=== PATIENT | female | born 1980 | race Caucasian/White ===

== ENCOUNTER 2020-07-03 08:00 | Outpatient (CLI) | payer MEDICAID, OTHER ==
[2020-07-03 18:41] LABS: BILIRUBIN,URINE NEGATIVE (NEGATIVE); GLUCOSE, URINE (UA) NEGATIVE (NEGATIVE); KETONES,URINE (UA) NEGATIVE (NEGATIVE); LEUKOCYTE ESTERASE, URINE NEGATIVE (NEGATIVE); NITRITE,URINE NEGATIVE (NEGATIVE); OCCULT BLOOD,URINE MODERATE (NEGATIVE); PROTEIN,URINE NEGATIVE (NEGATIVE); UROBILINOGEN,URINE 0.2 (NORMAL) E.U./dL (NORMAL)
[2020-07-03 19:01] LABS: AMORPHOUS SEDIMENT,UR Marked /LPF; BACTERIA,URINE Rare /HPF (None Seen); CLARITY,URINE CLOUDY (CLEAR); RBC,URINE 0-5 /HPF (0-5); SQUAMOUS EPITHELIAL CELL,UR RARE Squamous (<= Few); WBC,URINE 0-3 /HPF (0-5)
== END 2020-07-03 23:59 ==
LOC: LAB.R 08:00
PROVIDERS: ATTEND Emergency Medicine
DX: R10.31 Right lower quadrant pain (principal)
CPT/HCPCS: 81001; 87086

== ENCOUNTER 2020-12-04 17:00 | Day surgery (SDC) | payer MEDICAID ==
[2020-12-04 17:43] LABS: BASOPHILS % (AUTO) 0.3 %; EOSINOPHILS # (AUTO) 0.1 10^3/uL (0.0-0.7); EOSINOPHILS % (AUTO) 1.3 %; HCT - HEMATOCRIT 36.3 % (37.0-47.0); HGB - HEMOGLOBIN 12.6 g/dL (12.0-16.0); LYMPHOCYTES # (AUTO) 1.9 10^3/uL (1.5-3.5); LYMPHOCYTES % (AUTO) 17.5 %; MEAN CORPUSCULAR HEMOGLOBIN 29.7 pg (27.0-31.0); MEAN CORPUSCULAR HGB CONC 34.7 g/dL (32.0-36.0); MEAN CORPUSCULAR VOLUME 85.6 fL (81.0-99.0); MEAN PLATELET VOLUME 10.6 fL (7.9-10.8); MONOCYTES # (AUTO) 0.5 10^3/uL (0.0-1.0); MONOCYTES % (AUTO) 4.8 %; NEUTROPHILS # (AUTO) 8.4 10^3/uL (1.5-6.6); NEUTROPHILS % (AUTO) 75.6 %; PLT - PLATELET COUNT 235 10^3/uL (130-450); RED BLOOD COUNT 4.24 10^6/uL (4.20-5.40); RED CELL DISTRIBUTION WIDTH 11.7 % (12.0-15.0); WHITE BLOOD COUNT 11.1 x10^3/uL (4.8-10.8)
[2020-12-04] MEDS ORDERED: HYDROmorphone 1 MG/ML CARPUJECT IVP STA (17:44)
[2020-12-04] MEDS ORDERED: SODIUM CHLORIDE 0.9% 1,000 ML IV STA (17:44)
[2020-12-04] MEDS ORDERED: ONDANSETRON 4 MG/2 ML VIAL IVP STA (17:44)
[2020-12-04 17:52] LABS: ALBUMIN 4.5 g/dL (3.2-5.5); ALBUMIN/GLOBULIN RATIO 1.7 (1.0-2.2); BILIRUBIN,TOTAL 1.3 mg/dL (0.2-1.0); CALCIUM 9.2 mg/dL (8.5-10.3); CREATININE 0.7 mg/dL (0.4-1.0); TOTAL PROTEIN 7.2 g/dL (6.7-8.2)
[2020-12-04 17:56] LABS: BILIRUBIN,URINE NEGATIVE (NEGATIVE); GLUCOSE, URINE (UA) NEGATIVE (NEGATIVE); KETONES,URINE (UA) NEGATIVE (NEGATIVE); LEUKOCYTE ESTERASE, URINE NEGATIVE (NEGATIVE); NITRITE,URINE NEGATIVE (NEGATIVE); OCCULT BLOOD,URINE MODERATE (NEGATIVE); PH,URINE 6.5 PH (5.0-7.5); PROTEIN,URINE NEGATIVE (NEGATIVE); UROBILINOGEN,URINE 0.2 (NORMAL) E.U./dL (NORMAL)
[2020-12-04 18:00] LABS: CLARITY,URINE CLEAR (CLEAR); HCG UR QUAL NEGATIVE
[2020-12-04 18:05] LABS: BACTERIA,URINE Rare /HPF (None Seen); SQUAMOUS EPITHELIAL CELL,UR RARE Squamous (<= Few); WBC,URINE 0-3 /HPF (0-5)
[2020-12-04] MEDS ORDERED: IOPAMIDOL-300 100 ML VIAL ONE (18:19)
[2020-12-04] MEDS ORDERED: IOPAMIDOL-300 100 ML VIAL IVP ONE (18:38)
[2020-12-04] MEDS ORDERED: PIPERACILLIN/TAZOBACTAM 3.375 GM in SODIUM CHLORIDE 0.9% MINIBAG 100 ML IV STA (19:08)
--- NOTE | 2020-12-04 19:10 | CT Report ---
PROCEDURE: Abdomen/Pelvis W INDICATIONS: RLQ abd pain that radiates to back; ?appy vs stone CONTRAST: IV CONTRAST: Isovue 300 ml: 100 PO CONTRAST: *NO PO CONTRAST TECHNIQUE: After the administration of IV and oral contrast, 5 mm thick sections acquired from the diaphragms to the symphysis. 5 mm thick coronal and sagittal reformats were acquired. For radiation dose reducti on, the following was used: automated exposure control, adjustment of mA and/or kV according to jay ent size. COMPARISON: None. FINDINGS: ABDOMEN: Lung bases: Normal Heart:Normal in size. No pericardial effusion. Liver: Normal. Gallbladder: Normal. Bile ducts: Normal. Pancreas: Normal. Spleen: Normal. Adrenals: Normal. Kidneys and ureters: Normal. Stomach and duodenum: Normal. Bowel: Appendix is dilated measuring 9 mm. There is mild periappendiceal fat stranding. No definite a ppendicoliths are seen. No abscess. Other: No free fluid or air. Abdominal nodes: Normal. Aorta: Normal in size. IVC: Normal. Ventral wall: Normal. PELVIS: Bladder: Normal. Pelvic nodes: Normal. Inguinal: No hernia. Bones: No vertebral body compression fracture. No suspicious bone lesion. IMPRESSION: Acute appendicitis. No abscess. No appendicoliths identified. Findings (including all critical results) and recommendations were personally telephoned and discusse d with CASSI Suh in the emergency department on 12-04-20 19:06 Reviewed by: Ramez Meeks MD on 12/04/2020 7:08 PM PDT Approved by: Ramez Meeks MD on 12/04/2020 7:08 PM PDT Station ID: [id number]
--- NOTE | 2020-12-04 19:12 | ED Physician Documentation ---
History of Present Illness - Stated complaint Stated Complaint: L RT SIDE ABD PX/N/V - Chief complaint Chief Complaint: Abd Pain - Additonal information Additional information: 40-year-old female presents emergency department for evaluation of acute onset right lower quadrant abdominal pain that began this morning and somewhat insidiously but is begun to get progressively worse. She does have some associated nausea and vomiting. Feels a pressure in her abdomen when she urinates but no ariella dysuria urgency or frequency. She still retains her gallbladder and her appendix. Review of Systems Constitutional: denies: Fever, Chills Ears: reports: Reviewed and negative Nose: reports: Reviewed and negative Throat: reports: Reviewed and negative Cardiac: reports: Reviewed and negative Respiratory: reports: Reviewed and negative GI: reports: Abdominal Pain, Nausea, Vomiting : reports: Reviewed and negative Skin: reports: Reviewed and negative PD PAST MEDICAL HISTORY - Past Medical History Past Medical History: No - Past Surgical History Past Surgical History: Yes HEENT: Other - Present Medications Home Medications: Ambulatory Orders Medication Instructions Recorded Confirmed Albuterol Sulfate [Proair 90 mcg IH DAILY PRN 12/04/20 12/04/20 Respiclick] - Allergies Allergies/Adverse Reactions: Allergies Allergy/AdvReac Type Severity Reaction Status Date / Time Sulfa (Sulfonamide Allergy Rash Verified 12/04/20 17:07 Antibiotics) - Social History Does the pt smoke?: No Smoking Status: Never smoker Does the pt drink ETOH?: No Does the pt have substance abuse?: No PD ED PE NORMAL - General General: Alert and oriented X 3, No acute distress - Neck Neck: Supple, no meningeal sign - Cardiac Cardiac: RRR, No murmur - Respiratory Respiratory: Clear bilaterally - Abdomen Abdomen: Normal bowel sounds, Soft. No: Non tender (Rebound tenderness right lower quadrant. Equivocal McBurney's) - Back Back: No CVA TTP, No spinal TTP Results - Vitals Vitals: Vital Signs - 24 hr 12/04/20 12/04/20 17:04 18:03 Temperature 37.2 C Heart Rate 99 85 Respiratory 16 14 Rate Blood Pressure 102/57 L 106/74 O2 Saturation 100 100 Oxygen O2 Source Room air - Labs Labs: Laboratory Tests 12/04/20 12/04/20 12/04/20 17:20 17:20 17:45 WBC 11.1 H RBC 4.24 Hgb 12.6 Hct 36.3 L MCV 85.6 MCH 29.7 MCHC 34.7 RDW 11.7 L Plt Count 235 MPV 10.6 Neut # (Auto) 8.4 H Lymph # (Auto) 1.9 [place] # (Auto) 0.5 Eos # (Auto) 0.1 Baso # (Auto) 0.0 Absolute Nucleated RBC 0.00 Nucleated RBC % 0.0 Sodium 137 Potassium 4.0 Chloride 101 Carbon Dioxide 26 Anion Gap 10.0 BUN 10 Creatinine 0.7 Estimated GFR (MDRD) 93 Glucose 105 H Calcium 9.2 Total Bilirubin 1.3 H AST 28 ALT 19 Alkaline Phosphatase 73 Total Protein 7.2 Albumin 4.5 Globulin 2.7 Albumin/Globulin Ratio 1.7 Lipase 21 L Urine Color YELLOW Urine Clarity CLEAR Urine pH 6.5 Ur Specific [place] 1.020 Urine Protein NEGATIVE Urine Glucose (UA) NEGATIVE Urine Ketones NEGATIVE Urine Occult Blood MODERATE H Urine Nitrite NEGATIVE Urine Bilirubin NEGATIVE Urine Urobilinogen 0.2 (NORMAL) Ur Leukocyte Esterase NEGATIVE Urine RBC 6-10 H Urine WBC 0-3 Ur Squamous Epith Cells RARE Squamous Urine Bacteria Rare Ur Microscopic Review INDICATED Urine Culture Comments NOT INDICATED Urine HCG, Qual NEGATIVE - Rads (name of study) CT abd Radiology: Final report received (Acute appendicitis. No abscess. No appendicoliths identified.) PD MEDICAL DECISION MAKING - ED course Complexity details: reviewed results, d/w patient ED course: 40-year-old female presents emergency department for evaluation of acute onset right lower quadrant abdominal pain with associated nausea and vomiting. Exam is consistent with acute appendicitis and CT scan confirms such. I have discussed case with Dr. Buckley on-call for surgery. Zosyn has been ordered. Further care to be dictated by the surgical team. Departure - Departure Disposition: ED Transfer to [facility] Clinical Impression: Acute appendicitis Qualifiers: Acute appendicitis type: with localized peritonitis Appendicitis gangrene presence: without gangrene Appendicitis perforation presence: without perforation Appendicitis abscess presence: without abscess Qualified Code(s): K35.30 - Acute appendicitis with localized peritonitis, without perforation or gangrene
[2020-12-04] MEDS ORDERED: BUPIVACAINE 0.25% PF 30 ML VIAL SUBQ ONE ×2 (19:47)
[2020-12-04] MEDS ORDERED: ROCURONIUM 50 MG/5 ML VIAL ONE (20:01)
[2020-12-04] MEDS ORDERED: PROPOFOL 200 MG/20 ML VIAL IVP ONE (20:01)
[2020-12-04] MEDS ORDERED: fentaNYL 100 MCG/2 ML VIAL ONE (20:01)
[2020-12-04] MEDS ORDERED: MIDAZOLAM 2 MG/2 ML VIAL ONE (20:01)
[2020-12-04] MEDS ORDERED: LIDOCAINE-MPF 2% 5 ML VIAL ONE (20:01)
[2020-12-04] MEDS ORDERED: HYDROmorphone 0.5 MG/0.5 ML SYRINGE IVP PRN (20:06)
[2020-12-04] MEDS ORDERED: fentaNYL 100 MCG/2 ML VIAL IVP PRN (20:06)
[2020-12-04] MEDS ORDERED: ATROPINE ABBOJECT 1 MG/10 ML SYRINGE IVP PRN (20:06)
[2020-12-04] MEDS ORDERED: ONDANSETRON 4 MG/2 ML VIAL IVP PRN ×2 (20:06→21:56)
[2020-12-04] MEDS ORDERED: MORPHINE 2 MG/ML CARPUJECT IVP PRN (20:06)
[2020-12-04] MEDS ORDERED: NALOXONE 0.4 MG/ML VIAL IVP PRN (20:06)
--- NOTE | 2020-12-04 20:07 | ANESTHESIA ---
Pre-Anesthesia VS, & Labs - Diagnosis Acute appendicitis - Procedure Lap Appy Vital Signs: Temp Pulse Resp BP Pulse Ox 37.1 C 97 16 112/92 H 99 12/04/20 19:45 12/04/20 19:45 12/04/20 19:45 12/04/20 19:45 12/04/20 19:45 Height: 5 ft Weight (kg): 63.503 kg Body Mass Index: 27.3 BMI Classification: Overweight - NPO >8 hours Last Fluid Intake: H2O at 1600 - Is Patient ?: No - Lab Results Current Lab Results: Laboratory Tests 12/04/20 17:20: Sodium 137, Potassium 4.0, Chloride 101, Carbon Dioxide 26, Anion Gap 10.0, BUN 10, Creatinine 0.7, Estimated GFR (MDRD) 93, Glucose 105 H, Calcium 9.2, Total Bilirubin 1.3 H, AST 28, ALT 19, Alkaline Phosphatase 73, Total Protein 7.2, Albumin 4.5, Globulin 2.7, Albumin/Globulin Ratio 1.7, Lipase 21 L 12/04/20 17:20: WBC 11.1 H, RBC 4.24, Hgb 12.6, Hct 36.3 L, MCV 85.6, MCH 29.7, MCHC 34.7, RDW 11.7 L, Plt Count 235, MPV 10.6, Neut # (Auto) 8.4 H, Lymph # ( Auto) 1.9, [place] # (Auto) 0.5, Eos # (Auto) 0.1, Baso # (Auto) 0.0, Absolute Nucleated RBC 0.00, Nucleated RBC % 0.0 Lab results reviewed: Yes Fish Bones: 12/04/20 17:20 12/04/20 17:20 Home Medications and Allergies Home Medications: Ambulatory Orders Albuterol Sulfate [Proair Respiclick] 90 mcg IH DAILY PRN 12/04/20 Albuterol Sulfate [Proair Respiclick] 90 mcg IH DAILY PRN 12/04/20 Allergies/Adverse Reactions: Allergies Allergy/AdvReac Type Severity Reaction Status Date / Time Sulfa (Sulfonamide Allergy Rash Verified 12/04/20 17:07 Antibiotics) Anes History & Medical History - Anesthetic History Family history of Anesthesia Complications: Denies Family history of Malignant Hyperthermia: Denies - Medical History Cardiovascular: reports: None Pulmonary: reports: Asthma (Poorly controlled. Uses Albuterol inhalor daily) Gastrointestinal: reports: None Urinary: reports: None Neuro: reports: None Musculoskeletal: reports: None Endocrine/Autoimmune: reports: None Blood Disorders: reports: None Skin: reports: None Smoking Status: Never smoker Psychosocial: reports: No issues indicated History of Cancer?: No - Surgical History Eyes Ears Nose Throat (EENT): reports: Other (oral surgery) Exam General: Alert, Oriented x3, Cooperative, No acute distress Dental: WNL Mouth Openin Fingerbreadth Neck Mobility: Normal Mallampati classification: II Thyromental Distance: 4-6 cm Respiratory: Lungs clear, Normal breath sounds, No respiratory distress, No accessory muscle use Cardiovascular: Regular rate, Normal S1, Normal S2, No murmurs Mental/Cognitive Status: Alert/Oriented X3, Normal for patient Plan Anesthesia Type: General Consent for Procedure(s) Verified and Reviewed: Yes Code Status: Attempt Resuscitation ASA classification: 2-Mild systemic disease Is this case an emergency?: Yes
--- NOTE | 2020-12-04 20:19 | SURGERY HX AND PHYSICAL(T) ---
Surgical History & Physical - Chief Complaint/HPI Chief Complaint: RLQ pain History of Present Illness: 40 yo female had a similar episode of RLQ pain a few months ago which resolved. The current episode started at 0630 today, associated with N/V, and has persisted through the day, localized to RLQ. She has anorexia and only drank water today. No previous abdominal surgery.She is not . CT abd/pelvis: INDICATIONS: RLQ abd pain that radiates to back; ?appy vs stone CONTRAST: IV CONTRAST: Isovue 300 ml: 100 PO CONTRAST: *NO PO CONTRAST TECHNIQUE: After the administration of IV and oral contrast, 5 mm thick sections acquired from the diaphragms to the symphysis. 5 mm thick coronal and sagittal reformats were acquired. For radiation dose reduction, the following was used: automated exposure control, adjustment of mA and/or kV according to patient size. COMPARISON: None. FINDINGS: ABDOMEN: Lung bases: Normal Heart:Normal in size. No pericardial effusion. Liver: Normal. Gallbladder: Normal. Bile ducts: Normal. Pancreas: Normal. Spleen: Normal. Adrenals: Normal. Kidneys and ureters: Normal. Stomach and duodenum: Normal. Bowel: Appendix is dilated measuring 9 mm. There is mild periappendiceal fat stranding. No definite appendicoliths are seen. No abscess. Other: No free fluid or air. Abdominal nodes: Normal. Aorta: Normal in size. IVC: Normal. Ventral wall: Normal. PELVIS: Bladder: Normal. Pelvic nodes: Normal. Inguinal: No hernia. Bones: No vertebral body compression fracture. No suspicious bone lesion. IMPRESSION: Acute appendicitis. No abscess. No appendicoliths identified. Findings (including all critical results) and recommendations were personally telephoned and discussed with CASSI Suh in the emergency department on 12-04-20 19:06 Reviewed by: Ramez Hargrove MD on 12/04/2020 7:08 PM PDT Approved by: Ramez Hargrove MD on 12/04/2020 7:08 PM PDT - PMH/PSH/Social Hx Neurological History: None Cardiovascular: None Respiratory: Asthma (Poorly controlled. Uses Albuterol inhalor daily) Skin: None Endocrine/Autoimmune: None Gastrointestinal: None Urinary: None Musculoskeletal: None Blood Disorders: None Eyes Ears Nose Throat (EENT): Other (oral surgery) Smoking Status: Never smoker Does the pt drink ETOH?: No Does the pt have substance abuse?: No - Home Meds and Allergies Home Medications: Albuterol Sulfate [Proair Respiclick] 90 mcg IH DAILY PRN 12/04/20 Allergies/Adverse Reactions: Allergies Allergy/AdvReac Type Severity Reaction Status Date / Time Sulfa (Sulfonamide Allergy Rash Verified 12/04/20 17:07 Antibiotics) - Review of Systems Gastrointestinal: Nausea, Vomiting, Abdominal pain - Vital Signs Heart Rate: 97 Blood Pressure: 112/92 Temperature: 37.1 C Respiratory Rate: 16 O2 Saturation: 99 Weight (kg): 63.503 kg Height: 1.52 m - Physical Exam General Appearance: positive: No acute distress Eyes Bilatera: positive: Normal inspection ENT: positive: ENT inspection nml Neck: positive: Nml inspection Respiratory: positive: No respiratory distress Cardiovascular: positive: Regular rate & rhythm Abdomen: positive: No distention, Tenderness (RLQ, positive localized rebound, and positive Rovsing's sign) Extremities: positive: Nml appearance - Patient Review Patient Review: Problems were reviewed with the patient during this visit. Medications were reviewed with the patient during this visit. Allergies were reviewed this patient during this visit. Pertinent Tests Reviewed: All pertitent test for this patient were reviewed. - Assessment & Plan Assessment and Plan: Acute appendicitis by physical exam findings and CT scan. Plan: Lap appendectomy Preop Pete
[2020-12-04] MEDS ORDERED: BUPIVACAINE 0.25% PF 30 ML VIAL ONE (20:22)
[2020-12-04] MEDS ORDERED: DEXAMETHASONE 4 MG/ML VIAL ONE (20:57)
[2020-12-04] MEDS ORDERED: KETOROLAC 30 MG/ML VIAL ONE (20:57)
[2020-12-04] MEDS ORDERED: ONDANSETRON 4 MG/2 ML VIAL ONE (20:57)
[2020-12-04] MEDS ORDERED: LACTATED RINGERS 1,000 ML IV SCH (21:00)
[2020-12-04] MEDS ORDERED: SUGAMMADEX 200 MG/2 ML VIAL IVP ONE (21:28)
--- NOTE | 2020-12-04 21:52 | OPERATIVE REPORT ---
Operative Report - General Planned Procedure: Lap appendectomy Pre-Op Diagnosis: Acute Appendicitis Procedure Performed: Lap Appendectomy Post Op Diagnosis: Acute suppurative appendicitis - Procedure Note Primary Surgeon: Farhad Buckley Secondary Surgeon: none Anesthesia Provider: Queenie Vick CRNA Anesthesia Technique: General ET tube Estimated Blood Loss (mL): 10 Indications: 40 yo female with 12 hours of RLQ pain and acute appendicitis by clinical exam and CT imaging Findings: Acute, suppurative appendicitis, wrapped in omentum. Complications: none - Other Other Information/Narrative: Patient was taken to the operating room where general esthesia was induced, patient was intubated, and the lower abdomen was prepped with ChloraPrep and sterilely draped in the usual fashion. After a timeout, incision was made at the umbilicus with a scalpel and Metzenbaum scissors dissection down to the peritoneum. 5 mm trocar was placed atraumatically and CO2 was insufflated. A 5 mm 0 degree laparoscope was inserted and used to visualize the anterior abdominal wall as a 12 mm trocar was placed to the left of midline in the suprapubic location and a 5 mm trocar was placed in the right lower quadrant. Operative findings as above. The appendix was mobilized and the mesoappendix was divided with an Endo JANY vascular stapler x 1. The base of the appendix was then stapled across with an Endo JANY stapler and the appendix was placed into an Endopouch. There was some oozing from the mesoappendix staple line which was observed and stopped. The pelvis and right lower quadrant were irrigated well with saline and aspirated dry. The appendix in the Endopouch was withdrawn through the 12 mm trocar site, CO2 was desufflated from the abdomen and all trocars were removed after ensuring good hemostasis. Fascia at the umbilical and left suprapubic trocar sites was closed with 0 Vicryl on a UR needle and skin incisions were closed with 5-0 Monocryl. Surgical glue was applied to the incisions. Patient was extubated and taken to recovery in stable condition.
[2020-12-04] MEDS ORDERED: oxyCODONE 5 MG TABLET PO PRN (21:56)
[2020-12-04] MEDS ORDERED: LACTATED RINGERS 1,000 ML IV ONE (21:57)
--- NOTE | 2020-12-04 23:40 | ANESTHESIA POST OP EVALUATION ---
Anesthesia Post Eval - Post Anesthesia Eval Vitals: Last Vital Signs Temp 36.3 C L 12/04/20 22:41 Pulse 82 12/04/20 22:41 Resp 18 12/04/20 22:41 BP 91/58 L 12/04/20 22:41 Pulse Ox 100 12/04/20 22:41 CV Function Including HR & BP: Stable Pain Control: Satisfactory Nausea & Vomiting: Negative Mental Status: Baseline Respiratory Status: Airway Patent Hydration Status: Satisfactory Anesthesia Complications: None
[2020-12-05] MEDS ORDERED: ACETAMINOPHEN 325 MG TABLET PO PRN (08:57)
[2020-12-05 11:32] LABS: HCT - HEMATOCRIT 32.8 % (37.0-47.0); HGB - HEMOGLOBIN 11.2 g/dL (12.0-16.0); MEAN CORPUSCULAR HEMOGLOBIN 29.5 pg (27.0-31.0); MEAN CORPUSCULAR HGB CONC 34.1 g/dL (32.0-36.0); MEAN CORPUSCULAR VOLUME 86.3 fL (81.0-99.0); RED BLOOD COUNT 3.8 10^6/uL (4.20-5.40); RED CELL DISTRIBUTION WIDTH 11.8 % (12.0-15.0); WHITE BLOOD COUNT 11.4 x10^3/uL (4.8-10.8)
--- NOTE | 2020-12-05 12:11 | PROVIDER PROGRESS NOTE ---
Subjective - General Procedure Date: 12/04/20 Post Op Days: 1 Procedure Performed: Lap appendectomy - Review of Systems Wound/Incisions: positive: Healing well General: positive: Other (Tired) Gastrointestinal: negative: Nausea, Vomiting, Abdominal pain Objective - Patient Data Vital Signs: Vital Signs x48h Temp Pulse Resp BP Pulse Ox 12/05/20 07:52 36.9 C 86 16 87/51 L 12/05/20 04:26 36.4 C L 65 16 91/58 L 97 Weight: Weight 12/03/20 12/04/20 12/05/20 23:59 23:59 23:59 Weight (kg) 63.503 kg Intake & Output: Intake and Output Totals x24h 12/03/20 12/04/20 12/05/20 23:59 23:59 23:59 Intake Total 1100.000 580 Balance 1100.000 580 - Lab Results Lab Results: 12/05/20 11:09 12/04/20 17:20 Other Lab Results: Lab Results x24hrs 12/05/20 12/04/20 12/04/20 Range/Units 11:09 17:45 17:20 WBC 11.4 H (4.8-10.8) x10^3/uL RBC 3.80 L (4.20-5.40) 10^6/uL Hgb 11.2 L (12.0-16.0) g/dL Hct 32.8 L (37.0-47.0) % MCV 86.3 (81.0-99.0) fL MCH 29.5 (27.0-31.0) pg MCHC 34.1 (32.0-36.0) g/dL RDW 11.8 L (12.0-15.0) % Plt Count 215 (130-450) 10^3/uL MPV 11.0 H (7.9-10.8) fL Neut # (Auto) (1.5-6.6) 10^3/uL Lymph # (Auto) (1.5-3.5) 10^3/uL [place] # (Auto) (0.0-1.0) 10^3/uL Eos # (Auto) (0.0-0.7) 10^3/uL Baso # (Auto) (0.0-0.1) 10^3/uL Absolute Nucleated RBC x10^3/uL Nucleated RBC % /100WBC Sodium 137 (135-145) mmol/L Potassium 4.0 (3.5-5.0) mmol/L Chloride 101 (101-111) mmol/L Carbon Dioxide 26 (21-32) mmol/L Anion Gap 10.0 (6-13) BUN 10 (6-20) mg/dL Creatinine 0.7 (0.4-1.0) mg/dL Estimated GFR (MDRD) 93 (>89) Glucose 105 H (70-100) mg/dL Calcium 9.2 (8.5-10.3) mg/dL Total Bilirubin 1.3 H (0.2-1.0) mg/dL AST 28 (10-42) IU/L ALT 19 (10-60) IU/L Alkaline Phosphatase 73 (42-121) IU/L Total Protein 7.2 (6.7-8.2) g/dL Albumin 4.5 (3.2-5.5) g/dL Globulin 2.7 (2.1-4.2) g/dL Albumin/Globulin Ratio 1.7 (1.0-2.2) Lipase 21 L (22-51) U/L Urine Color YELLOW Urine Clarity CLEAR (CLEAR) Urine pH 6.5 (5.0-7.5) PH Ur Specific [place] 1.020 (1.002-1.030) Urine Protein NEGATIVE (NEGATIVE) mg/dL Urine Glucose (UA) NEGATIVE (NEGATIVE) mg/dL Urine Ketones NEGATIVE (NEGATIVE) mg/dL Urine Occult Blood MODERATE H (NEGATIVE) Urine Nitrite NEGATIVE (NEGATIVE) Urine Bilirubin NEGATIVE (NEGATIVE) Urine Urobilinogen 0.2 (NORMAL) (NORMAL) E.U./dL Ur Leukocyte Esterase NEGATIVE (NEGATIVE) Urine RBC 6-10 H (0-5) /HPF Urine WBC 0-3 (0-5) /HPF Ur Squamous Epith Cells RARE Squamous (<= Few) Urine Bacteria Rare (None Seen) /HPF Ur Microscopic Review INDICATED Urine Culture Comments NOT INDICATED Urine HCG, Qual NEGATIVE 12/04/20 Range/Units 17:20 WBC 11.1 H (4.8-10.8) x10^3/uL RBC 4.24 (4.20-5.40) 10^6/uL Hgb 12.6 (12.0-16.0) g/dL Hct 36.3 L (37.0-47.0) % MCV 85.6 (81.0-99.0) fL MCH 29.7 (27.0-31.0) pg MCHC 34.7 (32.0-36.0) g/dL RDW 11.7 L (12.0-15.0) % Plt Count 235 (130-450) 10^3/uL MPV 10.6 (7.9-10.8) fL Neut # (Auto) 8.4 H (1.5-6.6) 10^3/uL Lymph # (Auto) 1.9 (1.5-3.5) 10^3/uL [place] # (Auto) 0.5 (0.0-1.0) 10^3/uL Eos # (Auto) 0.1 (0.0-0.7) 10^3/uL Baso # (Auto) 0.0 (0.0-0.1) 10^3/uL Absolute Nucleated RBC 0.00 x10^3/uL Nucleated RBC % 0.0 /100WBC Sodium (135-145) mmol/L Potassium (3.5-5.0) mmol/L Chloride (101-111) mmol/L Carbon Dioxide (21-32) mmol/L Anion Gap (6-13) BUN (6-20) mg/dL Creatinine (0.4-1.0) mg/dL Estimated GFR (MDRD) (>89) Glucose (70-100) mg/dL Calcium (8.5-10.3) mg/dL Total Bilirubin (0.2-1.0) mg/dL AST (10-42) IU/L ALT (10-60) IU/L Alkaline Phosphatase (42-121) IU/L Total Protein (6.7-8.2) g/dL Albumin (3.2-5.5) g/dL Globulin (2.1-4.2) g/dL Albumin/Globulin Ratio (1.0-2.2) Lipase (22-51) U/L Urine Color Urine Clarity (CLEAR) Urine pH (5.0-7.5) PH Ur Specific [place] (1.002-1.030) Urine Protein (NEGATIVE) mg/dL Urine Glucose (UA) (NEGATIVE) mg/dL Urine Ketones (NEGATIVE) mg/dL Urine Occult Blood (NEGATIVE) Urine Nitrite (NEGATIVE) Urine Bilirubin (NEGATIVE) Urine Urobilinogen (NORMAL) E.U./dL Ur Leukocyte Esterase (NEGATIVE) Urine RBC (0-5) /HPF Urine WBC (0-5) /HPF Ur Squamous Epith Cells (<= Few) Urine Bacteria (None Seen) /HPF Ur Microscopic Review Urine Culture Comments Urine HCG, Qual - Current Medications Current Medications: Current Medications Generic Name Dose Route Start Last Admin Trade Name Freq PRN Reason Stop Dose Admin Oxycodone HCl 5 mg 12/04/20 21:56 12/05/20 08:49 Oxycodone 5 Mg Tablet PO 5 mg Q4HR PRN Administration PAIN - Physical Exam Wound/Incisions: positive: Healing well Abdomen: positive: Non-tender, No distention. negative: Tenderness Impression/Plan - Problem List Problem List: s/p lap appy. Patient feels well and has ambulated in room. Hct 33. No bruising or abdominal tenderness. Advance diet, home later today. Vital Signs - 24 hr 12/04/20 12/04/20 12/04/20 17:04 18:03 19:45 Temperature 37.2 C 37.1 C Heart Rate 99 85 97 Respiratory 16 14 16 Rate Blood Pressure 102/57 L 106/74 112/92 H O2 Saturation 100 100 99 12/04/20 12/04/20 12/04/20 20:26 21:44 21:45 Temperature 37.1 C 36.5 C 36.5 C Heart Rate 97 81 78 Respiratory 16 12 12 Rate Blood Pressure 112/92 H 94/77 93/68 O2 Saturation 99 100 100 12/04/20 12/04/20 12/04/20 21:50 22:00 22:05 Temperature 36.5 C 36.4 C L 36.4 C L Heart Rate 78 76 74 Respiratory 12 12 12 Rate Blood Pressure 89/69 L 96/61 98/69 O2 Saturation 99 100 100 12/04/20 12/04/20 12/04/20 22:10 22:15 22:20 Temperature 36.4 C L 37.3 C 37.3 C Heart Rate 73 73 72 Respiratory 12 22 14 Rate Blood Pressure 90/73 93/63 90/65 O2 Saturation 100 100 100 12/04/20 12/04/20 12/04/20 22:25 22:41 23:45 Temperature 37.3 C 36.3 C L 36.9 C Heart Rate 89 82 71 Respiratory 21 18 16 Rate Blood Pressure 109/72 91/58 L 84/56 L O2 Saturation 97 100 99 12/05/20 12/05/20 12/05/20 00:00 00:52 02:21 Temperature Heart Rate 72 74 75 Respiratory 16 18 Rate Blood Pressure 90/59 L 100/65 84/54 L O2 Saturation 99 12/05/20 12/05/20 04:26 07:52 Temperature 36.4 C L 36.9 C Heart Rate 65 86 Respiratory 16 16 Rate Blood Pressure 91/58 L 87/51 L O2 Saturation 97
[2020-12-05 12:52] VITALS: BP 94/55
--- NOTE | 2020-12-05 13:51 | Discharge Plan ---
Discharge Plan Problem Reviewed?: Yes Disposition: Home, Self Care Condition: Good Prescriptions: oxyCODONE [Roxicodone] 5 mg PO Q4HR PRN #10 tablet PRN Reason: Pain Diet: Regular Activity Restrictions: Additional Comments (No heavy lifting for one week) Shower Restrictions: No (OK to shower tomorrow and wet incisions) Driving Restrictions: No (Do not drive if taking oxycodone) Weight Bearing: Full Weight Additional Instructions or Follow Up instructions: Follow up in [facility] in one week No Smoking: If you smoke, Please STOP! Call for help.
--- NOTE | 2020-12-05 13:56 | DISCHARGE SUMMARY ---
"Discharge Summary Admit Date: 12/04/20 Discharge Date: 12/05/20 Discharging Provider: Marcio Code Status: Attempt Resuscitation Condition at Discharge: Good Discharge Disposition: 01 Home, Self Care - DIAGNOSES Admission Diagnoses: Acute appendicitis Discharge Diagnoses with Status of Each Condition: Acute appendicitis, resolved - HPI History of Present Illness: 40 yo female with acute appendicitis. - CONSULTS | PROCEDURES Procedures: Lap appendectomy 12/04/2020 - HOSPITAL COURSE Hospital Course: Uncomplicated lap appendectomy. Post op course notable only for H/H on POD#1. Patient ambulatory, tolerating diet, no abdominal distention or tenderness, no drainage from incisions or bruising. - ALLERGIES Allergies/Adverse Reactions: Allergies Allergy/AdvReac Type Severity Reaction Status Date / Time Sulfa (Sulfonamide Allergy Rash Verified 12/04/20 17:07 Antibiotics) - MEDICATIONS Home Medications: Ambulatory Orders Medication Instructions Recorded Confirmed Albuterol Sulfate [Proair 90 mcg IH DAILY PRN 12/04/20 12/04/20 Respiclick] oxyCODONE [Roxicodone] 5 mg PO Q4HR PRN #10 tablet 12/05/20 - PHYSICAL EXAM AT DISCHARGE General Appearance: positive: No acute distress Eyes Bilateral: positive: Normal inspection Abdomen: positive: Non-tender, No distention - LABS Result Diagrams: 12/05/20 11:09 12/04/20 17:20 - TIME SPENT Time Spent in Discharge (Minutes): 20"
== END 2020-12-05 14:47 | disposition home or self-care (01) ==
LOC: ED 17:00 → SDS 19:30 → MS2 21:37 → SDS 12-05 14:47
PROVIDERS: ATTEND Surgery
PROC: 0DTJ4ZZ Resection of Appendix, Percutaneous Endoscopic Approach (ICD-10-PCS; principal; 2020-12-04 20:30)
DX: K35.30 Acute appendicitis with localized peritonitis, without perforation or gangrene (principal); J45.909 Unspecified asthma, uncomplicated
CPT/HCPCS: 36415; 44970; 74177; 80053; 81001; 81025; 83690; 85025; 85027; 96374; 96375; 99284; 99285; A9270; J1170; J7120; Q9967; 81003; 87086

== ENCOUNTER 2021-11-23 00:59 | Emergency (ER) | payer MEDICAID ==
[2021-11-23 01:19] VITALS: BP 116/81
--- NOTE | 2021-11-23 03:49 | ED Physician Documentation ---
<Beth Suh - Last Filed: 11/24/21 12:59> History of Present Illness - Stated complaint Stated Complaint: face swelling, broken tooth - Chief complaint Chief Complaint: Heent PD PAST MEDICAL HISTORY - Present Medications Home Medications: Ambulatory Orders Medication Instructions Recorded Confirmed Albuterol Sulfate [Proair 90 mcg IH DAILY PRN 12/04/20 12/04/20 Respiclick] oxyCODONE [Roxicodone] 5 mg PO Q4HR PRN #10 tablet 12/05/20 Amox/Clav 875/125 [Augmentin 1 tablet PO Q12H 7 Days #14 tablet 11/23/21 875/125 Tab] HYDROcod/ACETAM 5/325 [[place] 5/325] 1 - 2 tablet PO Q6H PRN #20 tablet 11/23/21 Clindamycin [Cleocin] 450 mg PO TID 7 Days #63 cap 11/24/21 - Allergies Allergies/Adverse Reactions: Allergies Allergy/AdvReac Type Severity Reaction Status Date / Time Sulfa (Sulfonamide Allergy Rash Verified 11/24/21 12:39 Antibiotics) Departure - Departure Disposition: Home, Self Care Clinical Impression: Dental infection Condition: Good Instructions: ED Abscess Dental Follow-Up: Wilmer Espinosa DDS [Provider Admit Priv/Credential] - Prescriptions: Amox/Clav 875/125 [Augmentin 875/125 Tab] 1 tablet PO Q12H 7 Days #14 tablet HYDROcod/ACETAM 5/325 [Rupert 5/325] 1 - 2 tablet PO Q6H PRN #20 tablet PRN Reason: Pain Comments: Prescriptions for pain medication (vicodin) and an antibiotic (augmentin) have been electronically submitted to [facility] pharmacy in [place]. Contact Dr. Espinosa' office to arrange for follow-up, ideally within 2-3 days. Discharge Date/Time: 11/23/21 04:13 <Tani Low - Last Filed: 11/27/21 21:20> History of Present Illness - History obtained from History obtained from: Patient - History of Present Illness Timing: How many days ago (1-2) Pain level now: 4 Improved by: no ameliorating factors Worsened by: no exacerbating factors - Additonal information Additional information: c/o left-sided facial swelling, predominantly mandibular/sub-mandibular, x 1-2 days. She suspects this is related to a broken tooth , left mandibular molar that has been broken (not recently). she has associated pain with the swelling. Denies fever. Review of Systems Constitutional: denies: Fever Throat: reports: Dental pain / toothache. denies: Sore throat PD PAST MEDICAL HISTORY - Past Medical History Past Medical History: Yes Cardiovascular: None Respiratory: Asthma Neuro: None Endocrine/Autoimmune: None GI: None : None Musculoskeletal: None Derm: None - Past Surgical History Past Surgical History: Yes HEENT: Other - Social History Does the pt smoke?: No Smoking Status: Never smoker Does the pt drink ETOH?: No Does the pt have substance abuse?: No - Immunizations Immunizations are current?: Yes PD ED PE NORMAL - Vitals Vital signs reviewed: Yes - General General: Alert and oriented X 3, No acute distress, Well developed/nourished - HEENT HEENT: Pharynx benign, Dentition benign (no intraoral swelling, erythema, fluctuance. mild tenderness to percussion of left mandibular third molar) PD ED PE EXPANDED - HEENT HEENT Visual: 1 - swelling (swelling without firmness. no erythema) Results - Vitals Vitals: Oxygen O2 Source Room air PD MEDICAL DECISION MAKING - ED course Complexity details: considered differential, d/w patient ED course: mild but grossly visible left submandibular swelling associated with what was initially pain localized to left mandibular third molar; suspect dental infection with localized spread, will rx augmentin and vicodin with careful return precautions discussed and follow up with dentistry
[2021-11-23] MEDS ORDERED: HYDROcod/ACETAM 5/325 MG TABLET PO STA (04:04)
[2021-11-23] MEDS ORDERED: AMOX/CLAV 875 MG/125 MG TABLET PO STA (04:04)
== END 2021-11-23 04:13 | disposition home or self-care (01) ==
LOC: ED 00:59
DX: K04.7 Periapical abscess without sinus (principal)
CPT/HCPCS: 99282; A9270

== ENCOUNTER 2021-11-24 12:36 | Emergency (ER) | payer MEDICAID ==
[2021-11-24] MEDS ORDERED: SODIUM CHLORIDE 0.9% 1,000 ML IV STA (12:55)
[2021-11-24] MEDS ORDERED: HYDROmorphone 1 MG/ML CARPUJECT IVP STA (12:55)
[2021-11-24] MEDS ORDERED: AMPICILLIN/SULBACTAM 3 GM in SODIUM CHLORIDE 0.9% MINIBAG 100 ML IV STA (12:56)
--- NOTE | 2021-11-24 13:08 | ED Physician Documentation ---
History of Present Illness - Stated complaint Stated Complaint: JAW SWELLING/PX - Chief complaint Chief Complaint: Heent - Additonal information Additional information: 41-year-old female returns the emergency department for evaluation of worsening left lower jaw swelling. Seen here at this emergency department in the crab meat processor of 23 November. At that time she was diagnosed with a broken tooth and started on Augmentin and pain control. Despite this she has had progressive swelling and erythema of her left lower jaw and now some trismus. Reporting increased difficulty swallowing. She had attempted to follow-up with dentist/OMFS but her surgeon was out of town. Thus she presents here to the emergency department. She is tolerating her oral secretions but certainly has trismus. low grade temp elevation at home of 100 degrees. Review of Systems Constitutional: denies: Fever, Chills Throat: reports: Dental pain / toothache, Other (+trismus) Cardiac: reports: Reviewed and negative Respiratory: reports: Reviewed and negative GI: reports: Reviewed and negative : reports: Reviewed and negative Skin: reports: Reviewed and negative PD PAST MEDICAL HISTORY - Past Medical History Cardiovascular: None Respiratory: Asthma Neuro: None Endocrine/Autoimmune: None GI: None : None Musculoskeletal: None Derm: None - Past Surgical History Past Surgical History: Yes HEENT: Other - Present Medications Home Medications: Ambulatory Orders Medication Instructions Recorded Confirmed Albuterol Sulfate [Proair 90 mcg IH DAILY PRN 12/04/20 12/04/20 Respiclick] oxyCODONE [Roxicodone] 5 mg PO Q4HR PRN #10 tablet 12/05/20 Amox/Clav 875/125 [Augmentin 1 tablet PO Q12H 7 Days #14 tablet 11/23/21 875/125 Tab] HYDROcod/ACETAM 5/325 [[place] 5/325] 1 - 2 tablet PO Q6H PRN #20 tablet 11/23/21 Clindamycin [Cleocin] 450 mg PO TID 7 Days #63 cap 11/24/21 - Allergies Allergies/Adverse Reactions: Allergies Allergy/AdvReac Type Severity Reaction Status Date / Time Sulfa (Sulfonamide Allergy Rash Verified 11/24/21 12:39 Antibiotics) - Social History Does the pt smoke?: No Smoking Status: Never smoker Does the pt drink ETOH?: No Does the pt have substance abuse?: No - Immunizations Immunizations are current?: Yes PD ED PE EXPANDED - General General: Alert, No acute distress, Well developed/nourished - HEENT HEENT: Other (+ trismus; unable to open mouth. Swelling and erythema left lower lateral jaw with swelling and erythema to the submandibular space and lateral neck. normal phonation) - Neck Neck: Supple w/out meningeal sx, Other (Painful to turn neck laterally). No: Adenopathy - Cardiac Cardiac: Regular Rate, Radial strong equal, Pedal strong equal, Cap refill < 2 s ec. No: Murmur Present - Respiratory Respiratory: Clear to ausultation jose maria. No: Distress, Labored - Extremities Extremities: Normal. No: Deformity, Tenderness Results - Vitals Vitals: Vital Signs - 24 hr 11/24/21 11/24/21 12:39 15:19 Temperature 36.5 C Heart Rate 77 73 Respiratory 16 18 Rate Blood Pressure 120/95 H 107/71 O2 Saturation 99 100 Oxygen O2 Source Room air - Labs Labs: Laboratory Tests 11/24/21 11/24/21 11/24/21 13:14 13:14 13:14 WBC 7.5 RBC 4.19 L Hgb 12.5 Hct 35.7 L MCV 85.2 MCH 29.8 MCHC 35.0 RDW 11.4 L Plt Count 247 MPV 10.2 Neut # (Auto) 4.6 Lymph # (Auto) 2.0 [place] # (Auto) 0.7 Eos # (Auto) 0.1 Baso # (Auto) 0.0 Absolute Nucleated RBC 0.00 Nucleated RBC % 0.0 Sodium 136 Potassium 4.5 Chloride 99 L Carbon Dioxide 29 Anion Gap 8.0 BUN 12 Creatinine 0.7 Estimated GFR (MDRD) 92 Glucose 112 H Calcium 9.1 Total Bilirubin 0.7 AST 26 ALT 19 Alkaline Phosphatase 78 Total Protein 7.3 Albumin 4.3 Globulin 3.0 Albumin/Globulin Ratio 1.4 Lipase 25 Serum HCG, Qual NEGATIVE - Rads (name of study) soft tissue neck Radiology: Final report received (Left-sided submandibular enhancing lymph node with surrounding subcutaneous edema may reflect adenitis with adjacent cellulitis. No evidence of organized abscess. Reactive appearing bilateral deep cervical adenopathy) PD MEDICAL DECISION MAKING - ED course Complexity details: considered differential, d/w patient, d/w family ED course: 41-year-old female presents emergency department for evaluation of worsening left lower jaw and neck swelling. Diagnosed with a fractured tooth on the crab meat processor of the and started on Augmentin. Despite taking the doses appropriately she has increased swelling. Presents with low-grade temperature elevation of 100 degrees. She does have some trismus. No difficulty swallowing phonating but is reporting increased pain with swallow. Given early concern for possible Mark's angina the patient was administered 3 g of Unasyn IV. We then proceeded with CT soft tissue imaging of the neck. There is some submandibular lymphadenopathy with surrounding edema likely reflecting cellulitis but no evidence of organized abscess. We did obtain a CBC and electrolytes that were without findings of leukocytosis or worrisome electrolyte derangement. I reevaluated the patient and after few hours here in the emergency department she was noted to have a reduced erythema and swelling. We then administered 20 g of Decadron. Patient will be discharged with a prescription for clindamycin. Advised to stop the Augmentin. I did attempt to get in contact with the patient's OMFS surgeon Dr. Flaherty but he is away and was unavailable for consult. However the patient and her partner have been in contact with the office and report that they will be seeing him in Sunday this upcoming week. The patient appears improved with reduced swelling and erythema and is therefore stable for discharge home. Discussed worrisome and emergent return precautions for concerns of worsening trismus, dysphonia inability to tolerate oral secretions high fevers or difficulty and labored breathing 1545: I did briefly speak on the phone with Dr. Wilmer Espinosa for local FS in [place]. We discussed the patient's clinical presentation, her labs and CT imaging. He is in agreement that the patient is likely stable for outpatient treatment. He would agree with the change of antibiotics to clindamycin and he is happy to try and follow the patient up in office is soon as possible. Departure - Departure Disposition: Home, Self Care Clinical Impression: Cellulitis of jaw, left, Dental infection Condition: Stable Record reviewed to determine appropriate education?: Yes Prescriptions: Clindamycin [Cleocin] 450 mg PO TID 7 Days #63 cap Comments: Hayley, you were seen today in the emergency department for increased swelling and redness of your left jaw. The CT scan that we did does show that you have a fair amount of enlarged lymph nodes as well as infection but nothing to suggest an abscess or fluid collection. You were given 20 mg of Decadron today in the ER which will help with swelling and pain. Please stop taking the Augmentin. Instead begin taking clindamycin 450 mg 3 times a day for the next week. This prescription has been sent to the [facility] in [place]. Clindamycin can cause some pretty significant diarrhea. I do encourage you to take lactobacillus or eat 1 or 2 cups of yogurt a day while taking the medicine. Please call Dr. Espinosa office to arrange prompt follow-up. I discussed the case with him today and he would like to see you as soon as possible Return to the emergency department if you have any difficulty breathing, have a high-pitched voice, cannot swallow your oral secretions, have any significant fevers or worsening facial swelling
[2021-11-24 13:19] LABS: BASOPHILS % (AUTO) 0.4 %; EOSINOPHILS # (AUTO) 0.1 10^3/uL (0.0-0.7); EOSINOPHILS % (AUTO) 1.9 %; HCT - HEMATOCRIT 35.7 % (37.0-47.0); HGB - HEMOGLOBIN 12.5 g/dL (12.0-16.0); LYMPHOCYTES % (AUTO) 27.1 %; MEAN CORPUSCULAR HEMOGLOBIN 29.8 pg (27.0-31.0); MEAN CORPUSCULAR VOLUME 85.2 fL (81.0-99.0); MEAN PLATELET VOLUME 10.2 fL (7.9-10.8); MONOCYTES # (AUTO) 0.7 10^3/uL (0.0-1.0); MONOCYTES % (AUTO) 9.4 %; NEUTROPHILS # (AUTO) 4.6 10^3/uL (1.5-6.6); NEUTROPHILS % (AUTO) 60.9 %; PLT - PLATELET COUNT 247 10^3/uL (130-450); RED BLOOD COUNT 4.19 10^6/uL (4.20-5.40); RED CELL DISTRIBUTION WIDTH 11.4 % (12.0-15.0); WHITE BLOOD COUNT 7.5 x10^3/uL (4.8-10.8)
[2021-11-24 13:34] LABS: ALBUMIN 4.3 g/dL (3.2-5.5); ALBUMIN/GLOBULIN RATIO 1.4 (1.0-2.2); BILIRUBIN,TOTAL 0.7 mg/dL (0.2-1.0); CALCIUM 9.1 mg/dL (8.5-10.3); CREATININE 0.7 mg/dL (0.4-1.0); POTASSIUM 4.5 mmol/L (3.5-5.0); TOTAL PROTEIN 7.3 g/dL (6.7-8.2)
[2021-11-24 13:49] LABS: HCG,QUALITATIVE BLOOD NEGATIVE
--- NOTE | 2021-11-24 14:59 | CT Report ---
PROCEDURE: SOFT TISSUE NECK W INDICATIONS: left lower jaw swelling; ? ludwigs CONTRAST: IV CONTRAST: Optiray 320 ml: 100 PO CONTRAST: *NO PO CONTRAST TECHNIQUE: After the administration of intravenous contrast, 3.0 mm axial sections acquired from the sella to th e aortic arch. Additional oblique axial 3.0 mm sections acquired through the pharynx. 3 mm thick co rai reformats were generated. For radiation dose reduction, the following was used: automated exp osure control, adjustment of mA and/or kV according to patient size. COMPARISON: None. FINDINGS: Image quality: Excellent. Lymph nodes: There is a left level 2B lymph node measuring 1.2 x 0.9 cm with surrounding edema no kulwant dence of organized abscess. Additional deep cervical and bilateral adenopathy noted, greater on the l eft measuring up to 1 cm in short axis Vessels: Visualized vasculature appears patent. Incidental note is made of the left common carotid and right brachiocephalic arteries arising from a common trunk from the aortic arch, an anatomic vari ant. Neck spaces: The oropharynx, nasopharynx, and pharynx demonstrate no mucosal lesions. The vocal cor ds, false vocal cords, pyriform sinuses, epiglottis, vallecula, and tongue base all appear normal. E xtramucosal spaces appear unremarkable. Glands: The parotid and submandibular glands appear normal. The thyroid is normal in size and there are no incidental findings. Miscellaneous: Visualized brain and orbits appear normal. Lung apices appear clear. Superficial so ft tissues appear normal. Bones: No suspicious bony lesions. Visualized sinuses and mastoids appear unremarkable. IMPRESSION: Left-sided submandibular enhancing lymph node with surrounding subcutaneous edema may reflect adeniti s with adjacent cellulitis. No evidence of organized abscess. Reactive appearing bilateral deep cervical adenopathy Reviewed by: Brendan Sharma MD on 11/24/2021 1:58 PM LUZMA Approved by: Brendan Sharma MD on 11/24/2021 1:58 PM LUZMA Station ID: [id number]
[2021-11-24] MEDS ORDERED: DEXAMETHASONE 10 MG/ML VIAL PO STA (15:04)
[2021-11-24 15:19] VITALS: BP 107/71
== END 2021-11-24 16:07 | disposition home or self-care (01) ==
LOC: ED 12:36
DX: L03.211 Cellulitis of face (principal); K04.7 Periapical abscess without sinus; J45.909 Unspecified asthma, uncomplicated
CPT/HCPCS: 36415; 70491; 80053; 83690; 84703; 85025; 87040; 96365; 96375; 99284; J1170; Q9967